=== PATIENT | female | born 1975 | race Caucasian/White ===

== ENCOUNTER 2018-03-19 11:35 | Emergency (ER) | payer OTHER ==
[~2018-03-19] VITALS: Ht 170.2 cm; Wt 93.0 kg
== END 2018-03-19 19:17 | disposition home or self-care (01) ==
LOC: ER 11:35
DX: K52.89 Other specified noninfective gastroenteritis and colitis (principal)

== ENCOUNTER 2018-04-19 09:13 | Inpatient (IN) | payer OTHER ==
[~2018-04-19] VITALS: Ht 170.2 cm; Wt 200.0 kg
== END 2018-04-22 17:13 | disposition home or self-care (01) | DRG 392 ==
LOC: ER 09:13 → SEC-K 20:33 → MEDI 20:33
PROC: BU4CZZZ Ultrasonography of Uterus and Ovaries (ICD-10-PCS; principal; 2018-04-19)
PROC: BW21Y0Z Computerized Tomography (CT Scan) of Abdomen and Pelvis using Other Contrast, Unenhanced and Enhanced (ICD-10-PCS; 2018-04-19)
DX: K57.32 Diverticulitis of large intestine without perforation or abscess without bleeding (principal); E86.0 Dehydration; N20.0 Calculus of kidney

== ENCOUNTER 2019-09-17 11:24 | Emergency (ER) | payer OTHER ==
[~2019-09-17] VITALS: Ht 170.2 cm; Wt 94.3 kg
[2019-09-17] MEDS ORDERED: CIPRO500 MG PO (11:38)
== END 2019-09-17 12:57 | disposition home or self-care (01) ==
LOC: ER 11:24
DX: K52.89 Other specified noninfective gastroenteritis and colitis (principal)

== ENCOUNTER 2021-02-12 15:27 | Outpatient (CLI) | payer OTHER ==
[~2021-02-12 15:27] MED LIST: CIPRO500 MG PO
[2021-02-13] MEDS ORDERED: CRESTOR20 MG PO (14:56)
== END 2021-02-12 15:38 | disposition home or self-care (01) ==
LOC: RAD 15:27
PROVIDERS: ATTEND Obstetrics & Gynecology
DX: D25.1 Intramural leiomyoma of uterus (principal); D50.8 Other iron deficiency anemias; N92.0 Excessive and frequent menstruation with regular cycle

== ENCOUNTER 2021-02-13 12:30 | Inpatient (IN) | payer OTHER ==
[~2021-02-13] VITALS: Ht 170.2 cm; Wt 90.7 kg
[2021-02-13] MEDS ORDERED: CRESTOR20 MG PO (14:56)
[2021-02-20] MEDS ORDERED: INFED50 MG/ML (09:02)
[2021-02-20] MEDS ORDERED: HYOSCYAMINE0.125 M1 (09:02)
[2021-02-23] MEDS ORDERED: ULTRACET PO (11:03)
[2021-02-23] MEDS ORDERED: COLACE100 MG PO (11:03)
[2021-02-23] MEDS ORDERED: AMOX-CLAV 875-1 EACH PO (11:03)
== END 2021-02-23 11:38 | disposition home or self-care (01) | DRG 743 ==
LOC: SURH 02-20 07:00 → O/R 02-20 07:19 → SURH 02-20 12:30 → OB/GYN 02-20 16:00
PROVIDERS: ADMIT Obstetrics & Gynecology; ATTEND Obstetrics & Gynecology
PROC: 0UB70ZZ Excision of Bilateral Fallopian Tubes, Open Approach (ICD-10-PCS; 2021-02-20)
PROC: 0UJD4ZZ Inspection of Uterus and Cervix, Percutaneous Endoscopic Approach (ICD-10-PCS; 2021-02-20)
PROC: 0UT90ZZ Resection of Uterus, Open Approach (ICD-10-PCS; principal; 2021-02-20 07:00)
DX: N80.0 Endometriosis of uterus (principal); N84.0 Polyp of corpus uteri; N92.0 Excessive and frequent menstruation with regular cycle; D50.8 Other iron deficiency anemias; D72.829 Elevated white blood cell count, unspecified; Z53.31 Laparoscopic surgical procedure converted to open procedure

== ENCOUNTER 2024-05-16 06:27 | Day surgery (SDC) | payer OTHER ==
[2024-05-09 11:53] LABS: URINE APPEARANCE Clear; URINE BILIRRUBIN Negative (NEGATIVE); URINE BLOOD Negative; URINE COLOR Yellow; URINE GLUCOSE Negative (NEGATIVE); URINE KETONE Negative (NEGATIVE); URINE LEUKOCYTE Negative; URINE NITRATE Negative; URINE PROTEIN Negative (NEGATIVE); URINE UROBILINOGEN 0.2 E.U./dl
[2024-05-09 11:55] LABS: URINE BACTERIA 1288.8 uL (0.0-1933); URINE EPITHELIAL CELLS 23.3 uL (0.0-38.8); URINE RBC 12.6 uL (0.0-20.8)
[2024-05-09 11:57] LABS: URINE CAST 0.15 uL (0.0-1.40)
[2024-05-09 12:04] LABS: HEMATOCRIT 38.6 % (36.0-45.00); HEMOGLOBIN 12.6 g/dL (12.0-15.00); MEAN CELL VOLUME 85.9 fL (80.00-100.00); MEAN CORPUSCULAR HGB CONC 32.6 g/dl (32.0-36.0); PLATELET COUNT 378 K/uL (150-450); RED BLOOD COUNT 4.49 M/uL (4.00-6.00)
[2024-05-09 12:15] LABS: INR 0.98; PARTIAL THROMBOPLASTIN TIME 27.8 SECONDS (22.0-34.0); PROTHROMBIN TIME 10.7 SECONDS (9.0-11.5)
[2024-05-09 12:16] VITALS: BP 116/77
[2024-05-09 12:27] LABS: ALBUMIN 3.6 gm/dL (3.4-5.0); BILIRUBIN TOTAL 0.93 mg/dL (0.3-1.2); CREATININE SERUM 0.71 mg/dL (0.55-1.02); GFR 87.13; GLOBULINA 3.9 G/DL (2.4-3.5); POTASSIUM 4.04 mEq/L (3.5-5.1); TOTAL PROTEIN 7.5 gm/dL (6.4-8.2)
[~2024-05-16] VITALS: Ht 167.6 cm; Wt 90.7 kg
[~2024-05-16 06:27] MED LIST changes: +ACID REDUCER20 M1 PO; +AMOX-CLAV 875-1 EACH PO; +COLACE100 MG PO; +CRESTOR20 MG PO; +HYOSCYAMINE0.125 M1; +INFED50 MG/ML; +ULTRACET PO
[2024-05-16] MEDS ORDERED: CEFAZOLIN SODIUM 1,000 MG VIAL ONE ×2 (11:07→14:37)
[2024-05-16] MEDS ORDERED: POVIDONE-IODINE SCRUB 118 ML BOTT TOP ONE (13:00)
[2024-05-16] MEDS ORDERED: FAMOTIDINE/PF 20 MG/10 ML SYRINGE IV SCH (14:15)
[2024-05-16] MEDS ORDERED: CEFAZOLIN SODIUM 1,000 MG VIAL IV SCH (14:15)
[2024-05-16] MEDS ORDERED: FAMOTIDINE/PF 20 MG/2 ML VIAL ONE (14:37)
[2024-05-16] MEDS ORDERED: MORPHINE SULFATE 4 MG/ML VIAL IV ONE (15:05)
== END 2024-05-16 16:55 | disposition home or self-care (01) ==
LOC: CIR.AMB 06:27
PROVIDERS: ATTEND Specialist
DX: D24.1 Benign neoplasm of right breast (principal); D48.61 Neoplasm of uncertain behavior of right breast; Z88.6 Allergy status to analgesic agent; Z91.02 Food additives allergy status

== ENCOUNTER 2024-05-26 11:03 | Emergency (ER) | payer OTHER ==
[~2024-05-26] VITALS: Ht 167.6 cm; Wt 89.4 kg
[2024-05-26] MEDS ORDERED: DEXAMETHASONE SODIUM PHOSPHATE 4 MG/ML VIAL IV STA (13:22)
[2024-05-26 14:33] LABS: HEMATOCRIT 37.9 % (36.0-45.00); HEMOGLOBIN 12.7 g/dL (12.0-15.00); MEAN CELL VOLUME 84.4 fL (80.00-100.00); MEAN CORPUSCULAR HEMOGLOBIN 28.2 pg (27.00-32.0); MEAN CORPUSCULAR HGB CONC 33.4 g/dl (32.0-36.0); PLATELET COUNT 353 K/uL (150-450); RED BLOOD COUNT 4.49 M/uL (4.00-6.00); RED CELL DISTRIBUTION WIDTH 14.3 % (11.5-14.5)
[2024-05-26 14:56] LABS: CREATININE SERUM 0.67 mg/dL (0.55-1.02); GFR 93.16; POTASSIUM 4.43 mEq/L (3.5-5.1)
== END 2024-05-26 15:35 | disposition home or self-care (01) ==
LOC: ER 11:05
PROVIDERS: General Practice
DX: G51.0 Bell's palsy (principal); Z88.6 Allergy status to analgesic agent; Z91.018 Allergy to other foods